=== PATIENT | female | born 1995 | race Caucasian/White ===

== ENCOUNTER 2018-06-21 01:16 | Observation (INO) ==
[2018-06-21 02:12] LABS: Amphetamine Screen,Urine Negative ng/mL (Cutoff=1000); Barbiturate Screen,Urine Negative ng/mL (Cutoff=200); Benzodiazepines Screen,Urine Negative ng/mL (Cutoff=200); Cannabinoid Screen,Urine Negative ng/mL (Cutoff = 50); Cocaine Screen,Urine Negative ng/mL (Cutoff= 300); Opiate Screen,Urine Negative ng/mL (Cutoff=300); Phencyclidine Screen,Urine Negative ng/mL (Cutoff=25)
--- NOTE | 2018-06-21 02:19 | OB/GYN Progress Note ---
Date of Encounter: 06/21/18 Time of Encounter: 02:17 - Assessment and Plan (1) 38 weeks gestation of Status: Acute NST reactive Serial vaginal exams Urine contaminated; sent urine culture UDS negative Discharge home with labor precautions Follow up in the office with routine care and PRN. Subjective - Subjective Principal diagnosis: Contractions Interval history: Ms Sanchez presents to labor and delivery with c/o increased urination and back pain/contractions that have progressively gotten worse throughout the day. She is a at 38 weeks gestation. She states positive movement. She denies headache, vision changes, epigastric pain, leaking of fluid, and vaginal bleeding. Antepartum ROS: movement normal, contractions, no loss of fluid, no vaginal bleeding Objective - Vital Signs Vital Signs: Intake and Output 06/20/18 06/20/18 06/21/18 15:59 23:59 07:59 Other: Weight 95.254 kg Patient Weight 06/21/18 23:59 Weight 95.254 kg - Exam FHR: auscultation normal, category 1 FHR comments: Baseline 135 category I [place] contractions every 3-5 minutes Abdomen: Present: normal appearance, soft, gravid. Absent: tenderness Uterus: Present: normal. Absent: firm, bogginess, tenderness Cervical dilation: 3 Cervix effacement: 80 station: -1
[2018-06-21 03:22] LABS: Bilirubin,Urine Negative (Negative); Blood,Urine Large (Negative); Clarity,Urine Clear (Clear); Color,Urine Yellow (Yellow); Glucose,Urine (UA) Normal (Normal); Ketones,Urine Negative (Negative); Leukocyte Esterase,Urine Trace (Negative); Nitrite,Urine Negative (Negative); Protein,Urine Negative (Neg-Trace); Specific Gravity,Urine < 1.005 (1.010-1.025); Urobilinogen,Urine Normal (Normal)
[2018-06-21 03:24] LABS: Bacteria,Urine None Seen per hpf (None-Few); Hyaline Casts,Urine None Seen per lpf (None-Few); RBC,Urine 0-3 per hpf (0-3); Squamous Epithelial Cell,Urine Many per lpf (None-Few)
== END 2018-06-21 03:45 | disposition home or self-care (01) ==
LOC: 1NENULAB
PROVIDERS: ADMIT Obstetrics & Gynecology; ATTEND Obstetrics & Gynecology

== ENCOUNTER → 2018-06-25 01:08 | Observation (INO) ==
[2018-06-25 00:07] LABS: Amphetamine Screen,Urine Negative ng/mL (Cutoff=1000); Barbiturate Screen,Urine Negative ng/mL (Cutoff=200); Benzodiazepines Screen,Urine Negative ng/mL (Cutoff=200); Cannabinoid Screen,Urine Negative ng/mL (Cutoff = 50); Cocaine Screen,Urine Negative ng/mL (Cutoff= 300); Opiate Screen,Urine Negative ng/mL (Cutoff=300); Phencyclidine Screen,Urine Negative ng/mL (Cutoff=25)
--- NOTE | 2018-06-25 00:10 | OB/GYN Progress Note ---
Date of Encounter: 06/25/18 Time of Encounter: 00:08 - Assessment and Plan (1) 39 weeks gestation of Current Visit: Yes Status: Acute (2) Uterine contractions during Current Visit: Yes Status: Acute No change on serial cervical exams, given benadryl to promote rest, discharged home with labor and when to return to triage precautions. Patient verbalizes understanding (3) Encounter for suspected PROM, with rupture of membranes not found Current Visit: Yes Status: Acute Speculum exam shows normal discharge of , Fern negative Subjective - Subjective Interval history: 39+2 weeks gestation presents to triage with complaints of contractions since 9 PM. Patient also complains of clear discharge since this evening. Reports good movement, denies vaginal bleeding Antepartum ROS: loss of fluid, movement normal, contractions, no vaginal bleeding Objective - Vital Signs Vital Signs: Intake and Output 06/24/18 06/24/18 06/25/18 15:59 23:59 07:59 Other: Weight 95.527 kg - Exam FHR: auscultation normal FHR comments: Baseline 130 Abdomen: Present: soft, gravid Cervical dilation: 3/80/-1
== END | disposition home or self-care (01) ==
LOC: 1NENULAB
PROVIDERS: ADMIT Advanced Practice Midwife; ATTEND Advanced Practice Midwife

== ENCOUNTER 2018-06-25 20:51 | Inpatient (IN) ==
[~2018-06-25 20:51] MED LIST: Famotidine 20 MG/2 ML VIAL IVP PRN; Lidocaine 1% 20 ML MDV INFILT PRN; Metoclopramide 10 MG/2 ML VIAL IVP PRN; Naloxone 0.4 MG/ML INJ IVP PRN; Ondansetron 4 MG/2 ML VIAL IVP PRN
--- NOTE | 2018-06-25 20:56 | OB/GYN History & Physical ---
Date of Encounter: 06/25/18 Time of Encounter: 20:53 Assessment and Plan (1) 39 weeks gestation of Current visit: Yes Status: Acute Admit for labor GBS negative Patient may have epidural upon request Consider AROM Anticipate vaginal delivery POC per consult with Dr Bronson. History of Present Illness Chief complaint: Laboring HPI: Ms. Sanchez is a 22 year old at 39 weeks and 2 days that presents to labor and delivery with c/o vomiting this evening with every contraction and intense cramping and back pain. She states positive movement. She denies leaking of fluid, vaginal bleeding, headaches, vision changes, and epigastric pain. She states she was seen in triage last night and discharged after not making cervical change. Labs: GBS negative HIV NR Hep B NR RPR negative Rubella Non immmune Varicella immune Blood type O+ Past Med Surg Social Fam HX - Past Medical History Medical history: no medical history Psychiatric history: no psych history - Past Surgical History Surgical History: no surgical history - Social History Smoking Status: Never smoker Smokeless Tobacco Status: No Alcohol use: none Drug use: none - Family History Mother Family Member Ethnicity: Non- Living Status: Still Living Hx Family Cardiac Disorders: No Hx Family Respiratory Disorders: No Hx Family Cancer: No Hx Family GI Disorders: No Hx Family Endocrine Disorder: No Hx Family Neuromuscular Disorders: No Hx Family Neurologic Disorders: No Hx Family HEENT Disorders: No Hx Family Autoimmune Disorders: No Obstetrical History - Pregnancies : 1 Para: 0 Term: 0 : 0 Ab's: 0 Livin Medications and Allergies Multivit with Iron-Minerals [Flintstones Complete] 1 tab PO DAILY 06/21/18 [ History] Vit #108/Iron/FA [ One Tablet] 1 tab PO DAILY 06/21/18 [History ] 3 Allergy/AdvReac Type Severity Reaction Status Date / Time No Known Allergies Allergy Verified 06/24/18 23:36 Review of System OB All systems PM: reviewed and no additional remarkable complaints except as stated Exam - Constitutional Constitutional: well developed, well nourished, average body habitus, moderate distress - HEENT HEENT: Normocephaly, Mucus Membranes Moist - Lungs Respiratory exam: CTAB - Cardiovascular Cardiovascular exam: RRR, +S1, +S2 - Abdomen Abdomen: Present: bowel sounds normal, gravid, non tender - Extremities Extremities exam: normal capillary refill, normal inspection, radial pulses palpable and symmetrical Deep Tendon Reflex Grade: 2+ Normal - Vagina Vagina: Present: normal moisture - Cervix Dilation: 7 - Uterus Uterus exam: Present: normal size Results All other labs normal. - VTE Reasons for not Prescribing Prophylaxis: Treatment not Indicated - Low risk for VTE
[2018-06-25] MEDS ORDERED: Ringers Solution, Lactated 1,000 ML IVC SCH (21:00)
[2018-06-25 21:31] LABS: Basophils % 0.1 %; Eosinophils # 0.1 K/mcL (0.0-0.6); Eosinophils % 0.6 %; Hematocrit 36.9 % (35.3-44.9); Hemoglobin 12.8 g/dL (11.5-15.4); Immature Granulocytes % 0.3 % (0-4); Lymphocytes # 2.5 K/mcL (0.6-4.6); Lymphocytes % 23.8 %; Mean Corpuscular HGB Conc 34.7 g/dL (31.6-35.5); Mean Corpuscular Hemoglobin 29.8 pg (28.0-33.3); Monocytes # 0.8 K/mcL (0.0-1.3); Monocytes % 7.6 %; Neutrophils # 7.2 K/mcL (1.6-8.9); Platelet Count 357 K/mcL (140-400); Red Blood Count 4.29 M/mcL (3.82-4.97); Red Cell Distribution Width 13.5 % (11.5-14.5); Segmented Neutrophils % 67.6 %
[2018-06-25] MEDS ORDERED: Bupivacaine-MPF 0.25% 10 ML VIAL EP ONE (21:48)
[2018-06-25] MEDS ORDERED: *HR* FentaNYL (PF) 100 MCG/2 ML VIAL EP ONE (21:48)
[2018-06-25] MEDS ORDERED: Epidural Premix (fent/bupiv) 110 ML EP SCH (22:00)
[2018-06-25] MEDS ORDERED: Lidocaine -MPF 2% 5 ML VIAL ONE (22:06)
[2018-06-25] MEDS ORDERED: *HR* FentaNYL (PF) 100 MCG/2 ML VIAL ONE (22:06)
[2018-06-25] MEDS ORDERED: Bupivacaine-MPF 0.25% 10 ML VIAL ONE (22:06)
--- NOTE | 2018-06-25 23:18 | Anesthesia Evaluation PreOp ---
Date of Encounter: 06/25/18 Time of Encounter: 21:53 - Past History Planned Operation: labor epidural Cardiac History: Denies any Significant Hx Pulmonary History: Denies Any Significant HX BONE PULLER History: Denies Any Significant HX Other Medical History: Denies Any Significant HX Anesthesia History: No Prior Anesthetic Complications (never had GA or sedation. No FHAP.) : Yes Alcohol Use: none Drug use: none Medications and Allergies Multivit with Iron-Minerals [Flintstones Complete] 1 tab PO DAILY 06/21/18 [ History] Vit #108/Iron/FA [ One Tablet] 1 tab PO DAILY 06/21/18 [History ] 3 Allergy/AdvReac Type Severity Reaction Status Date / Time No Known Allergies Allergy Verified 06/24/18 23:36 - Meds/Allergy Pre-op Review Medications Reviewed: Yes Allergies Reviewed: Yes Beta Blockers on Current Med List: No Anesthesia Results - Labs 06/25/18 21:08 Anesthesia Exam VSS and FHTs stable. Height: 5'4" Weight: 94kg NPO (# of Hours): 6 Pain Scale: 8 Pain Scale Used: Numeric (1 - 10) - HEENT Pupil (Motor): Pupils equal Mallampati: II Teeth: Normal Oral Opening: Greater than 3 - BONE PULLER LOC: Oriented BONE PULLER Motor: Normal RUE, Normal LUE, Normal RLE, Normal LLE, Normal Face BONE PULLER Sensory: Normal: RUE, LUE, RLE, LLE, Face - Cardiac Rhythm: Regular - Pulmonary Breath Sounds: bilateral Clear Respiratory Effort: Symmetrical Anesthesia Assess/Plan ASA Score: 2 Modified Nellie Scale for Level of Consciousness: Cooperative, oriented, and tranquil Anesthetic Plan: Regional Monitoring Plan: Standard Monitors
--- NOTE | 2018-06-25 23:23 | Anesthesia Procedures ---
Date of Encounter: 06/25/18 Time of Encounter: 22:09 Procedures: Anesthesia - Epidural/Spinal Patient ID/Chart reviewed: Yes Patient examined: Yes OB Eval: Gestational age: 39 OB Eval: : 1 OB Eval: Hx Para: 0 OB Eval: Dilated at (cm): 7 OB Eval: Contractions: Non-stressed pattern Consent Obtained: Yes Supplemental Oxygen: None/Room Air Site Prep: Aseptic Technique, Sterile prep and drape, Povidone-Iodine 1% Patient position: upright Local Anesthetic: Lidocaine 1% Amount of Local Anesthetic used: 5 Touhy Needle Gauge: 18 Touhy Needle Depth (cm): 7 Catheter Depth at Skin (cm): 18 Test Dose (1.5% Lido + Epi): Volume given (mls): 3 Test Dose Result: Negative Loading Dose: 0.25% Marcaine (mls): 8 Loading Dose: Fentanyl (mcg): 100 Loading Dose Administered: Thru Catheter Infusion Med: 0.125% Bupivacaine w/ 2 mcg/ml Fentanyl Infusion Rate (mls/hr): [address]: Tegaderm, Tape Interspace Used: L4-L5 Loss of Resistance (CHINO): Yes Blood: No CSF: No Paresthesia: No Procedure: attempted multiple times to place needle in epidural space, met bone each time, spaces very narrow. Was successful in placement at L2-3, unable to thread the catheter. Removed and attempted at L4-5 with success, catheter easily placed at 20cm and patient reported complete relief of contraction pain. Vitals + FHT's: 3 Vital Signs Time 2209 2245 2250 2255 BP 137/90 142/91 127/70 138/74 Pulse 103 122 110 96 FHTs 140 140 140 140
[2018-06-25] MEDS ORDERED: Oxytocin 20 units/ LR 1000 mL 20 UNIT/1,000 ML BAG IVC ONE (23:27)
[2018-06-26 02:04] LABS: Amphetamine Screen,Urine Negative ng/mL (Cutoff=1000); Barbiturate Screen,Urine Negative ng/mL (Cutoff=200); Benzodiazepines Screen,Urine Negative ng/mL (Cutoff=200); Cannabinoid Screen,Urine Negative ng/mL (Cutoff = 50); Cocaine Screen,Urine Negative ng/mL (Cutoff= 300); Opiate Screen,Urine Negative ng/mL (Cutoff=300); Phencyclidine Screen,Urine Negative ng/mL (Cutoff=25)
[2018-06-26] MEDS ORDERED: Lidocaine/EPI 1:200k 2% PF 20 ML VIAL ONE (04:01)
--- NOTE | 2018-06-26 04:33 | OB/GYN Procedure Note ---
Delivery - Delivery Date: 06/26/18 Provider: Salena Bryant (Enmanuel, [email or web address]) Intrapartum events: none Delivery induction: none Delivery monitor: external FHT, external uterine Anesthesia: epidural Quantitated Blood Loss: 400 - Infant (s) A Infant Delivery Date: 06/26/18 Delivery Time: 03:26 Presentation: vertex Position: NOAH Route of delivery: Gender: Female Viability: Viable Pounds: 7 Ounces: 3 Weight Gram: 3330 kg at 1 minute: 8 at 5 mins: 8 Shoulder Dystocia: not encountered Specimens collected: cord blood Placenta: spontaneous, uterine exploration Cord: nuchal cord (x2), 3 umbilical vessels, delivered through nuchal - Complications Delivery complications: none - Disposition Mom disposition: stable in LDR [place] disposition: stable in LDR - Comments Comments: Called to LDR patient in stirrups pushing with contractions. I was gowned and gloved and together with Dr. Singer, PGY1 delivered a viable female infant over a second degree perineal laceration. A nuchal cord x2 was noted and infant delivered through, NO meconium or shoulder dystocia was encountered. was placed on maternal abdomen. Cord was clamped and cut after pulsations ceased. Cord blood was collected.The second degree perineal laceration was repaired with 3-0 vicryl. Placenta delivered spontaneously and intact. Uterus was manually explored and a small piece of membrane was removed. EBL 400. Pericare provided. All counts correct. Both mother and stable in LDR for 2 hour recovery.
[2018-06-26] MEDS ORDERED: Lanolin 7 G OINT...G. TP PRN (05:34)
[2018-06-26] MEDS ORDERED: Benzocaine/Menthol 56 GM AEROSOL SPRAY TP PRN (05:34)
[2018-06-26] MEDS ORDERED: Ibuprofen 600 MG TABLET PO PRN (05:34)
[2018-06-26] MEDS ORDERED: Measles/Mumps/Rubella Vacc 0.5 ML VIAL SQ PRN (05:34)
[2018-06-26] MEDS ORDERED: Oxytocin 20 units/ LR 1000 mL 20 UNIT/1,000 ML BAG IVC SCH (05:34)
[2018-06-26] MEDS ORDERED: Acetaminophen 325 MG TABLET PO PRN (05:34)
[2018-06-26] MEDS ORDERED: *HR* HYDROcodone/Acet 5/325 mg TABLET PO PRN (05:34)
[2018-06-26] MEDS ORDERED: Prenatal Vit/FA 1 EACH TABLET PO SCH (09:00)
[2018-06-27 08:07] VITALS: BP 113/74
--- NOTE | 2018-06-27 10:56 | Discharge Summary ---
Date of Encounter: 06/27/18 Time of Encounter: 10:55 - Discharge Diagnosis (1) (normal spontaneous vaginal delivery) Priority: Primary Status: Acute Comments: Mother and resting comfortably at bedside Pain well controlled with Motrin Reports mild lochia with no clots Ambulating without difficulty Normal appetite Voiding appropriately Yet to have bowel movement, but passing flatus Plans to breastfeed Counseled on signs and symptoms of depression Plan to discharge home today - Discharge Medications Prescriptions: Ibuprofen [Motrin] 600 mg PO Q6HR PRN 14 Days #56 tablet PRN Reason: Cramping Docusate [Colace] 100 mg PO BID 14 Days #28 capsule Ferrous Sulfate 325 mg PO DAILY 30 Days #30 tablet Home Medications: Vit #108/Iron/FA [ One Tablet] 1 tab PO DAILY 06/21/18 [History ] Docusate [Colace] 100 mg PO BID 14 Days #28 capsule 06/27/18 [Rx] Ferrous Sulfate 325 mg PO DAILY 30 Days #30 tablet 06/27/18 [Rx] Ibuprofen [Motrin] 600 mg PO Q6HR PRN 14 Days #56 tablet 06/27/18 [Rx] Allergies/Adverse Reactions: 3 Allergy/AdvReac Type Severity Reaction Status Date / Time No Known Allergies Allergy Verified 06/24/18 23:36 Data Procedures and tests throughout hospitalization: Laboratory Tests 06/25/18 06/25/18 21:08 23:48 WBC 10.6 RBC 4.29 Hgb 12.8 Hct 36.9 MCV 86.0 MCH 29.8 MCHC 34.7 RDW 13.5 Plt Count 357 MPV 10.0 Immature Gran % 0.3 Seg Neutrophils % 67.6 Lymphocytes % 23.8 Monocytes % 7.6 Eosinophils % 0.6 Basophils % 0.1 Neutrophils # 7.2 Lymphocytes # 2.5 Monocytes # 0.8 Eosinophils # 0.1 Basophils # 0.0 Urine Opiates Screen Negative Ur Barbiturates Screen Negative Ur Phencyclidine Scrn Negative Ur Amphetamines Screen Negative U Benzodiazepines Scrn Negative Urine Cocaine Screen Negative U Marijuana (THC) Screen Negative Ur Drug Screen Interp See Below Date of admission: 06/25/18 20:51 Consults: 06/26/18 05:34 Consult to Plunger Machine Operator [CONS] Routine Comment: Vaginal delivery, consult needed Discharging clinician: Enmanuel Johnson Anticipated date of discharge: 06/27/18 - Patient Status Disposition: Home, Self-Care Condition: Good Functional capacity at discharge: independent ambulation Overall status at discharge: patient is progressing back to baseline - Discharge Instructions Follow Up With: Salena Bryant CNM [Non-Partnered Physician] - Additional Instructions: . - Diet and Activity Activity: resume usual activities as tolerated Diet: advance to your usual diet Hospital Course Reason for admission: active labor Delivery: Episiotomy: none Laceration: 2nd degree Other procedures: none complications: none Discharge diagnosis: IUP at term delivered [place] baby: female Hospital course: 22 y/o at 39 weeks 2 days presented with cramping, pain, vomiting to Labor and Delivery. Notes contractions that were intensifying and getting more frequent. Pt progressed to active labor. Eventually delivered girl, 7lbs 3oz, apgars 8/8. Pt had 2nd degree laceration which was repaired. Mother and baby transferred to . Resting comfortably. Plan to discharge home today. Time Attestation: Total time spent providing and/or coordinating discharge services: Time Spent: Less than 30 minutes Exam - Constitutional Vitals: Temp Pulse Resp BP Pulse Ox 98.1 F 96 14 113/74 96 06/27/18 08:07 06/27/18 08:07 06/27/18 08:07 06/27/18 08:07 06/27/18 08:07 General appearance IM: cooperative, A&O X 3, pleasant, no acute distress, answers questions appropriately - Respiratory Respiratory exam: Present: CTAB - Cardiovascular Cardiovascular exam IM: Present: RRR, +S1, +S2 - GI/Abdominal GI/Abdominal exam IM: normal bowel sounds, soft, no peritoneal signs - Uterine Tone: Firm Uterus Position: At Umbilicus - Extremities Exam Extremities exam IM: Present: full ROM, normal capillary refill, normal inspection, radial pulses palpable and symmetrical - Neurological Exam Neurological exam: alert, CN II-XII intact, oriented X3 - Psychiatric Additional comments: Normal mood and affect. Counseled on signs and symptoms of depression. Instructed to seek medical attention with worsening signs/ symptoms. - Attending Attestation I have seen and examined the above patient with Dr. Johnson and agree with his assessment. Millie Tian CNM
== END 2018-06-27 12:50 | disposition home or self-care (01) | DRG 775 ==
LOC: 1NENULAB → 1NENUOBS 06-26 06:23
PROVIDERS: ADMIT Obstetrics & Gynecology; ATTEND Obstetrics & Gynecology